=== PATIENT | female | born 1995 | race Caucasian/White ===

== ENCOUNTER 2018-07-21 00:49 | Emergency (ER) | payer BC ==
[~2018-07-21] VITALS: Ht 157.5 cm; Wt 103.4 kg
[2018-07-21 00:59] VITALS: Ht 157.5 cm; Wt 103.4 kg
[2018-07-21 02:11] VITALS: BP 140/76
== END 2018-07-21 02:11 | disposition home or self-care (01) ==
LOC: ED 00:49
DX: M54.5 Low back pain (principal); R11.10 Vomiting, unspecified; R05 Cough; R10.9 Unspecified abdominal pain
CPT/HCPCS: Q0092